=== PATIENT | male | born 1990 | race Caucasian/White ===

== ENCOUNTER 2019-03-22 05:06 | Emergency (ER) | payer OTHER ==
[~2019-03-22] VITALS: Ht 172.7 cm; Wt 68.2 kg
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
[2019-03-22] MEDS ORDERED: ACETAMINOPHEN 325 MG TAB PO ONE (06:15)
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
[2019-03-22] MEDS ORDERED: AMPICILLIN SOD/SULBACTAM SOD 3 GM in D5W MINI-BAG PLUS 100 ML IV ONE (06:45)
[2019-03-22 07:02] LABS: BASO % 0.5 % (0.0-1.0); EOS # 0.1 10^3/uL (0.0-0.5); EOS % 0.7 % (0.0-3.0); HEMATOCRIT 43.8 % (42.0-52.0); HEMOGLOBIN 14.8 g/dl (13.5-17.5); LYMPH # 2.1 10^3/uL (1.5-5.0); LYMPH % 23.8 % (24.0-44.0); MEAN CORPUSCULAR HEMOGLOBIN 32.3 pg (27.0-33.0); MEAN CORPUSCULAR HGB CONC 33.8 g/dl (32.0-36.5); MEAN CORPUSCULAR VOLUME 95.6 fl (80.0-96.0); MONO # 0.7 10^3/uL (0.0-0.8); MONO % 8.2 % (0.0-5.0); NEUTROPHILS # 5.8 10^3/uL (1.5-8.5); NEUTROPHILS % 66.5 % (36.0-66.0); PLATELET COUNT, AUTOMATED 219 10^3/uL (150-450); RED BLOOD COUNT 4.58 10^6/uL (4.30-6.10); WHITE BLOOD COUNT 8.7 10^3/uL (4.0-10.0)
[2019-03-22 07:20] LABS: BLOOD UREA NITROGEN 8 MG/DL (7-18); CALCIUM LEVEL 8.9 MG/DL (8.5-10.1); CARBON DIOXIDE LEVEL 29 MEQ/L (21-32); CHLORIDE LEVEL 105 MEQ/L (98-107); CREATININE FOR GFR 1.16 MG/DL (0.70-1.30); GLOMERULAR FILTRATION RATE > 60.0 (>60); GLUCOSE, FASTING 86 MG/DL (70-100); POTASSIUM SERUM 4.1 MEQ/L (3.5-5.1); SODIUM LEVEL 142 MEQ/L (136-145)
[2019-03-22 07:48] VITALS: BP 123/60
== END 2019-03-22 07:52 | disposition short-term general hospital (02) ==
LOC: M ED 05:06
DX: S02.40EA Zygomatic fracture, right side, initial encounter for closed fracture (principal); S60.221A Contusion of right hand, initial encounter; S80.01XA Contusion of right knee, initial encounter; Y04.8XXA Assault by other bodily force, initial encounter; Y92.138 Other place on military base as the place of occurrence of the external cause

== ENCOUNTER → 2025-03-13 | Outpatient (CLI) | payer OTHER | LOC: M PLAIMG 10:33 | PROVIDERS: ATTEND Physician Assistant | DX: M54.59 Other low back pain (principal) ==